=== PATIENT | female | born 1950 | race Caucasian/White ===

== ENCOUNTER → 2018-04-15 06:11 | Outpatient (CLI) | payer MEDICARE, OTHER, SELFPAY ==
--- NOTE | 2018-04-15 09:13 | STRESSREP_ITS ---
Stress Test Report Pharmacologic myocardial perfusion stress test. 67-year-old lady with a history of preoperative evaluation. Medications hypertensive medication cholesterol medication. Stress protocol: Resting EKG demonstrates sinus rhythm with rate of 65 bpm left bundle branch block is noted resting blood pressure is 128/82. 0.4 mg of regadenoson was infused per usual protocol followed by rapid intravenous saline flush injection continuous EKG monitoring was performed. Patient maintained sinus rhythm throughout the recording. The maximum heart rate attained was 78 bpm which was 50% of maximum predicted heart rate the maximum workload was 1 metabolic equivalent. Patient maintained sinus rhythm throughout the recording and the left bundle branch block. No EKG changes were noted suggest abnormal flow reserve. The resting blood pressure is 128/82 with a final blood pressure 116/ 70. Myocardial perfusion protocol. 12.0 mCi of technetium 99m sestamibi was injected at rest. 0.4 mg of regadenoson was infused per usual protocol peak infusion 35.7 mCi of technetium 99m sestamibi was injected stress images were obtained stress and rest images were reconstructed and compared in the short axis vertical long horizontal long axis. Gated images were also obtained for next Perfusion SPECT analysis: Review of the stress images demonstrate normal perfusion noted in the septum anterior wall lateral wall and inferior wall. There is a small defect noted in the apex present on the stress and rest images to a similar extent. This may be secondary to the left bundle branch block morphology. Gated SPECT analysis: The gated ejection fraction is 61%. Conclusion: Normal pharmacologic myocardial perfusion stress test. Previous apical infarct cannot be excluded though the left bundle branch block could account for the above. Preserved ejection fraction.
== END ==
PROVIDERS: Visit Provider Internal Medicine Cardiovascular Disease
DX: Z01.810 Encounter for preprocedural cardiovascular examination (principal); R94.31 Abnormal electrocardiogram [ECG] [EKG]; I44.7 Left bundle-branch block, unspecified; Z13.6 Encounter for screening for cardiovascular disorders
CPT/HCPCS: 78452; 93017; A9500; A4216; J2785

== ENCOUNTER → 2025-03-22 | Outpatient (CLI) | payer OTHER, SELFPAY ==
--- NOTE | 2025-03-22 09:15 | US_ITS ---
PROCEDURE: ABD LIMITED W/ ELASTOGRAPHY REASON FOR EXAM: ABNORMAL LFT,HX TRAUMA CAUSING LIVER LACERTATION COMPARISON: None. TECHNIQUE: Right upper quadrant abdominal ultrasound. Bernice ElastQ Imaging shear wave elastography for non-invasive assessment of liver tissue stiffness. Bernice EPIQ Elite. FINDINGS: LIVER: Size: Unremarkable Length: 13 cm Echotexture: Normal Contour: Normal Lesions: None identified Elastography: EQI Med: 8.5 kPa EQI Med Jefry: 1.68 m/s IQR/Med: 20 %* GALLBLADDER: Surgically absent. COMMON BILE DUCT: Dilated measuring up to 13 mm . PANCREAS: Normal Visualized portions of the right kidney shows evidence of renal atrophy. No right upper quadrant ascites. US/ABD Limited w/ Elastography IMPRESSION: [id number] hepatic fibrosis. Status post cholecystectomy. Reference Values: SRU <1.37 m/s (5.7kPa): No to mild fibrosis 1.37 m/s - 2.2 m/s: Moderate to severe fibrosis >2.2 m/s (15kPa): Significant fibrosis / cirrhosis METAVIR Score F2 or higher: 1.34 m/s (5.7kPa) F3 or higher: 1.55 m/s (7.3kPa) F4: 1.80 m/s (10kPa) * If the IQR/Med is >30%, the variance in the measurements is a large and the a ccuracy of the measurement may be in question. Reading Location: [id number]
== END | disposition home or self-care (01) ==
PROVIDERS: Referring Provider Registered Nurse General Practice; Visit Provider Registered Nurse General Practice
DX: R94.5 Abnormal results of liver function studies (principal)
CPT/HCPCS: 76705; 76981